=== PATIENT | female | born 1990 | race Caucasian/White ===

== ENCOUNTER 2016-10-03 20:00 | Emergency (ER) | payer OTHER ==
[2016-10-03 23:08] VITALS: BP 99/51
[2016-10-03 23:10] LABS: microscopic required? NO
[2016-10-03 23:20] LABS: UA SPECIFIC GRAVITY 1.015 (1.005-1.035); urine erythrocyte NEGATIVE (NEGATIVE)
== END 2016-10-04 01:05 | disposition home or self-care (01) ==
LOC: ED 20:00
PROVIDERS: Emergency Medicine
DX: N83.202 Unspecified ovarian cyst, left side (principal); R10.32 Left lower quadrant pain
CPT/HCPCS: J1885